=== PATIENT | male | born 1970 | race Caucasian/White ===

== ENCOUNTER 2020-06-04 00:33 | Emergency (ER) | payer OTHER ==
[~2020-06-04] VITALS: Ht 193 cm; Wt 93.4 kg
--- NOTE | 2020-06-04 00:33 | NUR ---
ARRIVAL PT ARRIVED POV W/SPOUSE C/O SUDDEN ONSET OF CHEST PAIN LEFT SIDED RADIATING DOWN LEFT ARM. PT REPORTS CONTINUOUS, NON-REPRODUCIBLE. PT RATES PAIN 8/10 AND C/O SOB. PT DESCRIBES PAIN SHARP/STABBING. PT A & O X3, ABLE TO VOICE CONCERNS/NEEDS. PT PLACED ON HOSPICE CARE TRANSITIONS COORDINATOR, PT RHYTHM SVT W/RATE 233-235. INSTRUCTED PT TO VASOVAGAL WITH IMPROVED HEART RATE TO 108. PT REPORTED TAKING ASA AT HOME 324 MG PAPER TESTER. PT REPORTS FEELING BETTER AND SHORTNESS OF BREATH IMPROVED. ERP AT BEDISE, IV STARTED, EKG OBTAINED. ALL VITALS OBTAINED AND DOCUMENTED.
--- NOTE | 2020-06-04 00:41 | PCM.EKG ---
[facility] Test Date: 2020-06-04 Test Time: 00:39:29 Pat Name: RUDDY GARCIA Department: Patient ID: [id number] Room: Gender: M Depilatory Painter: ED : 1970 Requested By: CÉSAR SALDAÑA Order Number: [id number] Reading MD: César SALDAÑA Measurements Intervals Lee Rate: 106 P: 50 IN: 154 QRS: 28 QRSD: 82 T: 74 QT: 361 QTc: 480 Interpretive Statements Sinus tachycardia Borderline low voltage, extremity leads Borderline prolonged QT interval No previous ECG available for comparison Electronically Signed On 06-06-2020 6:09:23 CDT by César SALDAÑA Please click the below link to view image of tracing.
[2020-06-04 00:44] VITALS: BP 129/84
[2020-06-04 00:45] LABS: BASOPHIL % 0.3 % (0.0-0.2); EOSINOPHIL # 0.2 10^3/uL (0.0-0.2); EOSINOPHIL % 2.2 % (0.0-5.0); LYMPHOCYTES # 2.39 10^3/uL1 (1.0-4.8); LYMPHOCYTES % 22.8 % (24.0-44.0); MEAN CORP HGB 26.2 pg (26-34); MONOCYTES # 0.7 10^3/uL (0.3-0.8); MONOCYTES % 6.6 % (5.0-12.0); NEUTROPHIL # 7.2 10^3/uL (1.8-7.7); PLATELET COUNT 292 10^3/uL (150-400); RED CELL DISTRIBUTION WIDTH 12.4 % (11.5-14.5)
[2020-06-04 00:54] VITALS: BP 106/39
--- NOTE | 2020-06-04 00:57 | ER.PDOC ---
General Chief Complaint: Chest Pain-Cardiac Nature Stated Complaint: CHEST PAIN Time seen by MD: 00:50 Source: patient Exam Limitations: no limitations History of Present Illness Initial Comments Left chest pain since last night after dinner. He is short of breath, denies nausea or vomiting. His pain was initially 8 out of 10, he is down to 5 out of 10. No cough or congestion. Pain is sharp and does not radiate. He took 4 baby aspirin prior to coming to the ED. Severity/Quality: moderate, tightness Radiation: no radiation Prior CP/Workup: Cardiac Cath, Echocardiography, Heart Attack Nitro Today/Relief: 0.4 mg x 1 Aspirin Today: 81 mg x 4, Provided At Home Associated Symptoms: shortness of breath Allergies: Coded Allergies: No Known Drug Allergies (Verified Allergy, Unknown, 06/04/20) Home Meds Reported Medications Aspirin (ASPIRIN) 81 Mg Tab.chew, 81 MG PO DAILY24, TAB.CHEW 06/04/20 Elviteg/Ramona/Emtric/Tenofo Ala (Genvoya Tablet) 150 Mg-150 Mg-200 Mg-10 Mg Tablet, 1 EACH PO HS, TAB 06/04/20 Past Medical History Medical History: cardiac problems Surgical History: stent (cardiac) Family History Significant Family History: no pertinent family hx Social History Alcohol Use: occassionally Drug Use: none Physical Exam General Appearance: No Apparent Distress, WD/WN Neck: Non-Tender, Full Range of Motion, Supple, Normal Inspection Respiratory: chest non-tender, no respiratory distress, other (absent breath sounds left mid to lower chest) Cardiovascular: Normal Peripheral Pulses, Regular Rate, Rhythm, No Edema, No Gallop, No JVD, No Murmur, Tachycardia Gastrointestinal: Normal Bowel Sounds, No Organomegaly, No Pulsatile Mass, Non Tender, Soft Extremities: Normal Range of Motion, Non-Tender, Normal Inspection, No Pedal Edema, No Calf Tenderness, Normal Capillary Refill 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 (06/04/20 00:39) D-Dimer (06/04/20 00:39) Xr Chest 1v (06/04/20 00:39) Ekg-Routine (06/04/20 00:39) Nitroglycerin (Nitrostat) (06/04/20 01:00) Covid19 Antigen Venessa Jonna (06/04/20 01:45) Vital Signs Date Time Temp Pulse Resp B/P (MAP) Pulse Ox O2 Delivery O2 Flow Rate FiO2 06/04/20 01:09 98.2 107 16 99/62 (74) 97 Room Air 2.00 Nasal Canula 06/04/20 00:54 98.2 113 16 106/39 (61) 97 Room Air 2.00 Nasal Canula 06/04/20 00:44 98.2 233 06/04/20 00:44 98.2 233 16 129/84 (99) 99 Room Air 06/04/20 00:44 98.2 233 16 99 Administered Medications Medications (Trade) Dose Ordered Sig/Nettie Route PRN Reason Start Time Stop Time Status Last Admin Dose Admin Nitroglycerin (Nitrostat) 0.4 mg PRN PRN SL CHEST PAIN 06/04/20 01:00 07/04/20 00:59 06/04/20 00:49 0.4 MG Laboratory Tests Test 06/04/20 00:37 White Blood Count 10.5 10^3/uL (4.5-11.0) Red Blood Count 5.04 10^6/uL (4.50-5.90) Hemoglobin 13.2 g/dL (13.9-16.3) L Hematocrit 40.4 % (37.0-53.0) Mean Corpuscular Volume 80.2 fL (78-100) Mean Corpuscular Hemoglobin 26.2 pg (26-34) Mean Corpuscular Hemoglobin Concent 32.7 g/dL (33-36.5) L Red Cell Distribution Width 12.4 % (11.5-14.5) Platelet Count 292 10^3/uL (150-400) Mean Platelet Volume 9.5 fL (7.8-11.0) Neutrophils (%) (Auto) 68.0 % (41.0-85.0) Lymphocytes (%) (Auto) 22.8 % (24.0-44.0) L Monocytes (%) (Auto) 6.6 % (5.0-12.0) Neutrophils # (Auto) 7.2 10^3/uL (1.8-7.7) Lymphocytes # (Auto) 2.39 10^3/uL1 (1.0-4.8) Monocytes # (Auto) 0.7 10^3/uL (0.3-0.8) Absolute Immature Granulocyte (auto 0.01 10^3 u/L (0-2) Absolute Eosinophils (auto) 0.2 10^3/uL (0.0-0.2) Immature Granulocytes % 0.10 % (0.00-0.50) Eosinophils % 2.2 % (0.0-5.0) Basophils % 0.3 % (0.0-0.2) H Basophils # 0.0 10^3/uL (0.0-0.1) Prothrombin Time 11.8 SEC (9.6-12.0) Prothrombin Time INR (Non-Therap) 1.1 Activated Partial Thromboplast Time 24.7 SEC (24.67-30.72) D-Dimer 2.97 mg/L (0.19-0.49) *H Sodium Level 137 mmol/L (132-145) Potassium Level 3.5 mmol/L (3.6-5.2) L Chloride Level 97.0 mmol/L (96-109) Carbon Dioxide Level 28.1 mmol/L (20.0-32) Anion Gap 15.4 Blood Urea Nitrogen 11 mg/dL (7-18) Creatinine 1.19 mg/dL (0.59-1.40) Estimated GFR () 77.7 (>/=60) Est GFR (CKD-EPI)(Non-Afr Barbadian) 64.2 (>/=60) BUN/Creatinine Ratio 9.0 Glucose Level 357 mg/dL (70-110) H Calcium Level 9.0 mg/dL (8.4-10.5) Total Bilirubin 0.3 mg/dL (0.2-1.0) Aspartate Amino Transferase (AST) 23 U/L (0-35) Alanine Aminotransferase (ALT) 19 U/L (12-78) Alkaline Phosphatase 126 U/L (50-136) Total Creatine Kinase 75 U/L (39-308) Creatine Kinase MB 0.7 ng/mL (0.5-3.6) Troponin I 0.03 ng/mL (0.00-0.05) Pro-B-Type Natriuretic Peptide 2230 pg/mL (0-125) H Total Protein 8.4 g/dL (6.4-8.2) H Albumin 3.3 g/dL (3.4-5.0) L Globulin 5.1 Albumin/Globulin Ratio 0.647 Progress Progress CXR: Near complete opacification of the left mike thorax likely reflects a combination of large left pleural effusion with associated compressive atelectasis. Underlying infiltrate is not excluded. Spoke with Dr. Handy the surgeon who told me to transfer patient to [place] because he would need more intensive evaluation and more specialists. He is also leaving town in 5 hours. I also spoke with the hospitalist and he told me that he is not comfortable keeping the patient here because patient needs a thoracocentesis by interventional radiologist, Pharmacy Technician and may even need a CT Surgeon. EKG/XRAY/CT/US EKG: NSR, no ST T wave changes EKG Comments: HR 106, sinus tachycardia ER DEPART Departure Time of Disposition: 02:01 Disposition: 05 DISCH/XFER OTHER Impression: Primary Impression: Large pleural effusion Additional Impression: Chest pain Condition: Stable Referrals: PCP,UNKNOWN (PCP) PRIMARY CARE PROVIDER Comments Transfer to [facility] ED for Dr. Sy Duration or Time Spent with Pa: 60 min Critical Care Note Total Time (mins): 60 Problem Qualifiers Additional Impression: Chest pain Chest pain type: unspecified Qualified Codes: R07.9 - Chest pain, unspecified CÉSAR SALDAÑA MD Jun 04, 2020 00:57
--- NOTE | 2020-06-04 00:57 | DIREP ---
PROCEDURE:CHEST 1 VIEW COMPARISON:None. INDICATIONS:Chest pain FINDINGS: LUNGS/PLEURA:Near complete opacification of the left mike thorax likely reflects a combination of large left pleural effusion with associated compressive atelectasis. Underlying infiltrate is not excluded in the appropriate clinical setting. The right mike thorax is relatively clear. VASCULATURE:No pulmonary vascular congestion within the aerated right mike thorax. CARDIAC:The left heart border is obscured. MEDIASTINUM:Mediastinal contours appear within acceptable limits. BONES:No acute abnormality. OTHER:Negative. CONCLUSION: 1. Near complete opacification of the left mike thorax likely reflects a combination of large left pleural effusion with associated compressive atelectasis. Underlying infiltrate is not excluded. Dictated by: Slick Graff M.D. On 06/04/2020 at 00:55 AM
[2020-06-04] MEDS ORDERED: NITROSTAT SL PRN (01:00)
--- NOTE | 2020-06-04 01:05 | NUR ---
LAB REPORTED D-DIMER 2.97, ERP NOTIFIED.
--- NOTE | 2020-06-04 01:06 | NUR ---
RATE REMAINS 107-108, PT DENIES CHEST PAIN AT PRESENT, REPORTS SOB IMPROVING. PT PLACED ON 02 2L VIA NC UPON ARRIVAL TO ER 1.
[2020-06-04 01:09] VITALS: BP 99/62
[2020-06-04 01:12] LABS: CARBON DIOXIDE 28.1 mmol/L (20.0-32)
[2020-06-04 01:25] VITALS: BP 122/58
--- NOTE | 2020-06-04 01:25 | NUR ---
ERP CALLED DR. ALANIZ FOR ADMISSION/TRANSFER. PENDING DECISION. PT CONT DENIES CHEST PAIN, DENIES SOB. HR REMAINS 104, NS TKO INFUSING RIGHT AC.
[2020-06-04] MEDS ORDERED: ELVI1TAB3 PO (01:31)
[2020-06-04] MEDS ORDERED: ASPI-667 PO (01:31)
[2020-06-04] MEDS ORDERED: NS 1000ML 1,000 ML IV STA (01:47)
--- NOTE | 2020-06-04 01:49 | NUR ---
TRANSFER TRANSFER CONFIRMED AT 0138 DR. CADE AT [facility]. [facility] CT EMS TONED AT 0149. PT AND SO AWARE OF TRANSFER. PT REMAINS A & O X 3, NO DISTRESS. BP 119/73, HR SR 99, REGULAR. RR 16 AND REGULAR. PT DENIES CP AT PRESENT. PT REPORTS IMPROVED RR EFFORT. 99 % 2 L VIA NC. NS TKO TO 18 R AC. SO REMAINS AT BEDSIDE. NAD NOTED, PENDING EMS ARRIVAL.
[2020-06-04 01:52] VITALS: BP 119/73
--- NOTE | 2020-06-04 01:56 | NUR ---
HOLD ELIS LINDSEY TO CONTACT SURGEON AND HOSPITALIST FOR ADMISSION.
--- NOTE | 2020-06-04 02:01 | NUR ---
PT TO BE TRANSFERED TO [facility], EMS AT BEDSIDE ASSUMING CARE. REPORT GIVEN TO FRANSISCO MEJIA.
== END 2020-06-04 02:05 | disposition short-term general hospital (02) ==
LOC: ER 00:33
DX: J90 Pleural effusion, not elsewhere classified (principal); I25.2 Old myocardial infarction; Z79.82 Long term (current) use of aspirin; Z20.822 Contact with and (suspected) exposure to COVID-19
CPT/HCPCS: 36415; 71045; 80053; 82550; 82553; 83880; 84484; 85025; 85379; 85610; 85730; 87426; 93005; 99285